=== PATIENT | female | born 1990 | race Caucasian/White ===

== ENCOUNTER 2016-07-21 17:31 | Emergency (ER) | payer OTHER ==
[~2016-07-21] VITALS: Ht 160 cm; Wt 3.0 kg
[2016-07-21 17:43] VITALS: BP 118/80; PULSE 88; RESP 18; TEMP 98.3; O2SAT 98
[2016-07-21 17:48] VITALS: BP 118/80; PULSE 87; TEMP 98.3; O2SAT 96
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
[2016-07-21] MEDS ORDERED: LIDOCAINE 1%/EPINEPHrine 1:100,000 SOLN 20 ML VIAL INFIL ONE (18:30)
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
[2016-07-21] MEDS ORDERED: IOHEXOL 350 MG/ML 10 ML VIAL (for RAD DIAG) IV ONE (18:39)
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
[2016-07-21 18:55] LABS: AUTOMATED NEUTROPHIL # 8.7 TH/MM3 (1.8-7.7); BASOPHIL # 0.1 TH/MM3 (0-0.2); BASOPHIL % 0.5 % (0.0-2.0); EOSINOPHIL % 0.3 % (0.0-4.0); HEMATOCRIT 40.9 % (35.0-46.0); HEMO FLAGS DIFF FINAL; LYMPH % 10.1 % (9.0-44.0); LYMPHOCYTE # 1.1 TH/MM3 (1.0-4.8); MEAN CELL VOLUME 96.9 FL (80.0-100.0); MEAN CORPUSCULAR HEMOGLOBIN 33.1 PG (27.0-34.0); MEAN CORPUSCULAR HGB CONC 34.1 % (32.0-36.0); MONO % 6.5 % (0.0-8.0); NEUT % 82.6 % (16.0-70.0); PLATELET COUNT 176 TH/MM3 (150-450); RED BLOOD COUNT 4.22 MIL/MM3 (4.00-5.30); WHITE BLOOD COUNT 10.6 TH/MM3 (4.0-11.0)
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
--- NOTE | 2016-07-21 19:06 | PD ---
Physical Exam Date Seen by Provider: July 21, 2016 Time Seen by Provider: 19:05 Narrative Accepted in transfer of care from Dr. Bradford Data Data Last Documented VS Vital Signs Date Time Temp Pulse Resp B/P Pulse Ox O2 Delivery O2 Flow Rate FiO2 07/21/16 17:48 98.3 87 118/80 96 Room Air 07/21/16 17:43 18 Orders Basic Metabolic Panel (Bmp) (07/21/16 17:48) Complete Blood Count With Diff (07/21/16 17:48) Prothrombin Time / Inr (Pt) (07/21/16 17:48) Act Partial Throm Time (Ptt) (07/21/16 17:48) Alcohol (Ethanol) (07/21/16 17:48) Chest, Single Ap (07/21/16 17:48) Pelvis, Ap Only (Routine) (07/21/16 17:48) Ct Abd/Pel W Iv Contrast(Rout) (07/21/16 17:48) Ct Thorax/ Chest W Iv Contrast (07/21/16 17:48) Iv Access Insert/Monitor (07/21/16 17:48) Ecg Monitoring (07/21/16 17:48) Oximetry (07/21/16 17:48) Oxygen Administration (07/21/16 17:48) Ct Brain W/O Iv Contrast(Rout) (07/21/16 ) Ct Cerv Spine W/O Contrast (07/21/16 ) Knee, Complete (4vws) (07/21/16 ) Lidocai-Epi 1%-1:100,000 Inj (Xylocaine- (07/21/16 18:30) Iohexol 350 Inj (Omnipaque 350 Inj) (07/21/16 18:39) Labs Laboratory Tests Test 07/21/16 18:45 White Blood Count 10.6 TH/MM3 Red Blood Count 4.22 MIL/MM3 Hemoglobin 14.0 GM/DL Hematocrit 40.9 % Mean Corpuscular Volume 96.9 FL Mean Corpuscular Hemoglobin 33.1 PG Mean Corpuscular Hemoglobin 34.1 % Concent Red Cell Distribution Width 12.0 % Platelet Count 176 TH/MM3 Mean Platelet Volume 8.7 FL Neutrophils (%) (Auto) 82.6 % Lymphocytes (%) (Auto) 10.1 % Monocytes (%) (Auto) 6.5 % Eosinophils (%) (Auto) 0.3 % Basophils (%) (Auto) 0.5 % Neutrophils # (Auto) 8.7 TH/MM3 Lymphocytes # (Auto) 1.1 TH/MM3 Monocytes # (Auto) 0.7 TH/MM3 Eosinophils # (Auto) 0.0 TH/MM3 Basophils # (Auto) 0.1 TH/MM3 CBC Comment DIFF FINAL Differential Comment MDM Medical Record Reviewed: Yes Supervised Visit with JOSH: No Differential Diagnosis Accepted in transfer of care from Dr. Bradford; please refer to his dictation Narrative Course Accepted in transfer of care from Dr. Bradford; for follow-up of pending imaging studies and patient disposition Sendy Kohli MD July 21, 2016 19:06
[2016-07-21 19:08] LABS: APTT (PATIENT) 28.2 SEC (24.3-30.1); PROTHROMBIN TIME - PATIENT 10.7 SEC (9.8-11.6)
[2016-07-21 19:15] VITALS: BP 113/73; PULSE 82; RESP 18; O2SAT 97
[2016-07-21 19:15] LABS: BICARBONATE 24.3 MEQ/L (21.0-32.0); POTASSIUM 3.6 MEQ/L (3.5-5.1)
[2016-07-21] MEDS ORDERED: ONDANSETRON HCL 4 MG/2 ML VIAL IV ONE (19:15)
[2016-07-21] MEDS ORDERED: MORPHINE SULFATE 4 MG/ML INJ IV PUSH ONE (19:15)
[2016-07-21 19:49] VITALS: O2SAT 97
[2016-07-21 21:49] VITALS: RESP 16
[2016-07-21] MEDS ORDERED: IBUP800T23 PO (21:51)
[2016-07-21] MEDS ORDERED: TRAM50TA PO (21:51)
[2016-07-21] MEDS ORDERED: ROBA500T PO (21:51)
[2016-07-21] MEDS ORDERED: BACT800T5 PO (21:51)
[2016-07-21] MEDS ORDERED: ACETAMINOPHEN/HYDROcodone 325 MG/5 MG TAB PO ONE (22:15)
[2016-07-21] MEDS ORDERED: SULFAMETHOXAZOLE-TRIMETHOPRIM DS 800-160 MG TAB PO ONE (22:15)
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
== END 2016-07-22 06:17 | disposition home or self-care (01) ==
LOC: NEPC 17:31
DX: S01.01XA Laceration without foreign body of scalp, initial encounter (principal); S81.012A Laceration without foreign body, left knee, initial encounter; S00.03XA Contusion of scalp, initial encounter; M79.1 Myalgia; F17.200 Nicotine dependence, unspecified, uncomplicated; V89.0XXA Person injured in unspecified motor-vehicle accident, nontraffic, initial encounter; Y93.I9 Activity, other involving external motion
CPT/HCPCS: 12015; 12034; 70450; 71010; 71260; 72125; 72170; 73560; 73564; 74177; 80048; 80307; 85025; 85610; 85730; 96374; 96375; 99285; J2270; J2405; Q9967